=== PATIENT | female | born 1945 | race Caucasian/White ===

== ENCOUNTER 2017-11-29 12:37 | Emergency (ER) | payer SELFPAY ==
[~2017-11-29] VITALS: Ht 165.1 cm; Wt 65.0 kg
[2017-11-29 12:39] VITALS: BP 135/65; PULSE 75; RESP 24; TEMP 97.8; O2SAT 95
[2017-11-29 12:54] VITALS: O2SAT 95
--- NOTE | 2017-11-29 12:56 | PD ---
HPI Chief Complaint: Fall Time Seen by Provider: 12:51 Travel History International Travel<30 days: No Contact w/Intl Traveler<30days: No Traveled to known affect area: No History of Present Illness HPI Patient was found by family down on a tile floor it is unknown if the patient has syncopal type episode versus a mechanical trip and fall. Patient herself denies any actual complaints and would like to return home. Patient arrives by [facility] not on a shedpack but has a c-collar in place. 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 and for that reason she does not believe in doctors, and does not follow up with doctors. 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 no pcp no history? no written dnr/advanced directives in place. PFSH Past Medical History Medical History: Unable to Obtain Tetanus Vaccination: Unknown ?: Not Past Surgical History Surgical History: Unable to Obtain Social History Alcohol Use: No Tobacco Use: No Substance Use: No Allergies-Medications (Allergen,Severity, Reaction): Coded Allergies: No Known Allergies (Unverified , 11/29/17) Reported Meds & Prescriptions Reported Meds & Active Scripts Active Active Prescriptions or Reported Medications Unobtainable Review of Systems ROS Limitations: Clinical Condition Physical Exam Narrative GENERAL: SKIN: Warm and dry. PALE HEAD: TRAUMATIC SCALP LAC POSTERIORLY EYES: Pupils equal and round. No scleral icterus. No injection or drainage. ENT: No nasal bleeding or discharge. Mucous membranes pink and moist. OVER LEFT NASOLABIAL FOLD A ULCERATED MASS IS NOTED WHICH ACCORDING TO FAMILY IS CHRONIC AND UNDIAGNOSED NECK: Trachea midline. No JVD. CARDIOVASCULAR: Regular rate and rhythm. RESPIRATORY: No accessory muscle use. Clear to auscultation. Breath sounds equal bilaterally. GASTROINTESTINAL: Abdomen soft, non-tender, nondistended. Hepatic and splenic margins not palpable. MUSCULOSKELETAL: Extremities without clubbing, cyanosis, or edema. No obvious deformities. NEUROLOGICAL: Awake BUT CONFUSED... Normal speech. Data Data Last Documented VS Vital Signs Date Time Temp Pulse Resp B/P (MAP) Pulse Ox O2 Delivery O2 Flow Rate FiO2 11/29/17 12:54 Nasal Cannula 2.00 11/29/17 12:54 95 11/29/17 12:39 97.8 75 24 135/65 (88) Orders Orders Complete Blood Count With Diff (11/29/17 12:51) Comprehensive Metabolic Panel (11/29/17 12:51) Troponin I (11/29/17 12:51) B-Type Natriuretic Peptide (11/29/17 12:51) Prothrombin Time / Inr (Pt) (11/29/17 12:51) Act Partial Throm Time (Ptt) (11/29/17 12:51) Lipase (11/29/17 12:51) Chest, Single Ap (11/29/17 12:51) Iv Access Insert/Monitor (11/29/17 12:51) Ecg Monitoring (11/29/17 12:51) Oxygen Administration (11/29/17 12:51) Oximetry (11/29/17 12:51) Remove Backboard (11/29/17 12:51) Collar [place] (11/29/17 ) Labs Laboratory Tests Test 11/29/17 13:00 White Blood Count 10.4 TH/MM3 Red Blood Count 2.27 MIL/MM3 Hemoglobin 7.0 GM/DL Hematocrit 20.8 % Mean Corpuscular Volume 91.7 FL Mean Corpuscular Hemoglobin 30.7 PG Mean Corpuscular Hemoglobin Concent 33.5 % Red Cell Distribution Width 14.6 % Platelet Count 198 TH/MM3 Mean Platelet Volume 7.2 FL Neutrophils (%) (Auto) 86.4 % Lymphocytes (%) (Auto) 8.6 % Monocytes (%) (Auto) 4.7 % Eosinophils (%) (Auto) 0.1 % Basophils (%) (Auto) 0.2 % Neutrophils # (Auto) 9.0 TH/MM3 Lymphocytes # (Auto) 0.9 TH/MM3 Monocytes # (Auto) 0.5 TH/MM3 Eosinophils # (Auto) 0.0 TH/MM3 Basophils # (Auto) 0.0 TH/MM3 CBC Comment DIFF FINAL Differential Comment Prothrombin Time 13.6 SEC Prothromb Time International Ratio 1.3 RATIO Activated Partial Thromboplast Time 22.1 SEC Blood Urea Nitrogen 14 MG/DL Creatinine 1.00 MG/DL Random Glucose 123 MG/DL Total Protein 5.8 GM/DL Albumin 2.9 GM/DL Calcium Level 8.5 MG/DL Alkaline Phosphatase 66 U/L Aspartate Amino Transf (AST/SGOT) 28 U/L Alanine Aminotransferase (ALT/SGPT) 10 U/L Total Bilirubin 0.5 MG/DL Sodium Level 140 MEQ/L Potassium Level 3.6 MEQ/L Chloride Level 104 MEQ/L Carbon Dioxide Level 27.5 MEQ/L Anion Gap 9 MEQ/L Estimat Glomerular Filtration Rate 55 ML/MIN Troponin I 0.14 NG/ML B-Type Natriuretic Peptide 124 PG/ML Lipase 165 U/L MDM Medical Decision Making Medical Screen Exam Complete: Yes Emergency Medical Condition: Yes Medical Record Reviewed: Yes Differential Diagnosis Intracranial hemorrhage versus skull fracture versus anemia versus STEMI versus non-STEMI versus electrolyte abnormalities as cause of possible syncope Narrative Course Patient patient started to become bradycardic within 30 minutes after arrival patient was given medication however she continued to become bradycardic we initiated chest compressions intubated with 7-/2 ET tube and continue compressions and ACLS...... unfortunately throughout the entire ACLS and compressions patient never exhibited another symptom other than asystole or slow PEA bedside ultrasound did not show anY CARDIAC activity. Additionally went out to speak with family who all stated that the patient's oriental orthodox did not believe in going to see any physicians and so she does not have a primary care physician currently.... Patient did not have a DNR on file however the family does state that she would have never wanted to be kept alive on machine and also that she probably would not have wanted to have been intubated or the event had CPR initiated however none of this information was known until after these steps have been taken. Despite efforts patient continued to be in asystole and or PEA and did not respond to any of the doses of epinephrine or bicarbonate that was were given as well as ventilation via ET tube.... Patient pronounced at 1340 while the patient was in PEA however ultrasound did not show any cardiac contractions family made aware. family agreed that it was probably for the best that she didn't survive because they knew she would not have wanted to be "artificially" kept alive. I advised family that due to lack of documented DNR resuscitation efforts were initiated prior to family/poa/next of kin being available at the bedside for such a discussion. It is my belief that patient had multifactorial dysfunctions that had not been properly diagnosed due to the patient's desire to NOT see physicians for several years. Patient's blood work returned after she had been pronounced showing anemia of hemoglobin of 7 as well as non-STEMI with a troponin of 0.14 Critical Care Narrative CRITICAL CARE NOTE: With evaluation of the patient, labs, EKG, receipt of radiologic studies, administration of medications, reevaluation the patient and discussion of the patient with the admitting physicians, the total critical care time was [45] minutes. Time to perform other separately billable procedures was not included in the critical care time. Procedures Procedure Narrative EMERGENT: INTUBATION: The patient was put in optimal position for the procedure. Rapid sequence intubation was initiated by me using [NONE NEEDED] milligrams of etomidate IV and [NONE] milligrams of [NONE] IV. The patient was intubated with a [7.5] cuffed endotracheal tube. Tube placement was confirmed by visualization of the tube and balloon passing through the cords, capnometry Breath sounds were equal and well aerated bilaterally postintubation. No breath sounds over stomach. Patient tolerated procedure well. Diagnosis Primary Impression: S/P CARDIAC ARREST Additional Impression: S/P FALL V SYNCOPE Scripts Unable to Obtain Active Prescriptions or Reported Meds Disposition: 20 Pedro Smiley MD Nov 29, 2017 12:56
[2017-11-29 13:25] LABS: BASOPHIL % 0.2 % (0.0-2.0); EOSINOPHIL % 0.1 % (0.0-4.0); LYMPH % 8.6 % (9.0-44.0); LYMPHOCYTE # 0.9 TH/MM3 (1.0-4.8); MEAN CELL VOLUME 91.7 FL (80.0-100.0); MEAN CORPUSCULAR HEMOGLOBIN 30.7 PG (27.0-34.0); MEAN CORPUSCULAR HGB CONC 33.5 % (32.0-36.0); MEAN PLATELET VOLUME 7.2 FL (7.0-11.0); MONO % 4.7 % (0.0-8.0); MONOCYTE # 0.5 TH/MM3 (0-0.9); NEUT % 86.4 % (16.0-70.0); PLATELET COUNT 198 TH/MM3 (150-450); RED BLOOD COUNT 2.27 MIL/MM3 (4.00-5.30); RED CELL DISTRIBUTION WIDTH 14.6 % (11.6-17.2); WHITE BLOOD COUNT 10.4 TH/MM3 (4.0-11.0)
[2017-11-29 13:30] LABS: INTERNATIONAL NORMALIZED RATIO 1.3 RATIO; PROTHROMBIN TIME - PATIENT 13.6 SEC (9.8-11.6)
--- NOTE | 2017-11-29 13:39 | RADRPT ---
EXAM DATE/TIME: 11/29/2017 13:05 [facility] COMPARISON: No previous studies available for comparison. INDICATIONS : Syncopal episode- fall. MEDICAL HISTORY : None. SURGICAL HISTORY : None. ENCOUNTER: Initial ACUITY: 1 day PAIN SCORE: Non-responsive. LOCATION: Bilateral chest FINDINGS: There is opacification is identified in the left mid lung and base. Air bronchograms are identified. Minimal haziness is seen in the right base. Heart is moderately enlarged. CONCLUSION: 1. Dense consolidating airspace disease in the left lung base with suspected small effusion. 2. Mild air space disease right lung base. 3. Moderate cardiomegaly. Mo Gay MD on November 29, 2017 at 13:35 Board Certified Radiologist. This report was verified electronically.
[2017-11-29 13:41] LABS: HEMATOCRIT 20.8 % (35.0-46.0)
[2017-11-29 13:50] LABS: ALBUMIN 2.9 GM/DL (3.4-5.0); AST (GOT) 28 U/L (15-37); BICARBONATE 27.5 MEQ/L (21.0-32.0); BLOOD UREA NITROGEN 14 MG/DL (7-18); CALCIUM 8.5 MG/DL (8.5-10.1); CHLORIDE 104 MEQ/L (98-107); GLOMERULAR FILTRATION RATE 55 ML/MIN (>89); GLUCOSE,RANDOM 123 MG/DL (74-106); SODIUM (NA) 140 MEQ/L (136-145)
[2017-11-29 13:52] LABS: ALT (GPT) 10 U/L (10-53)
[2017-11-29 13:55] LABS: ALKALINE PHOSPHATASE 66 U/L (45-117); TOTAL BILIRUBIN ADULT 0.5 MG/DL (0.2-1.0); TOTAL PROTEIN 5.8 GM/DL (6.4-8.2); TROPONIN I 0.14 NG/ML (0.02-0.05)
== END 2017-11-29 15:05 | disposition expired ==
LOC: NEPC 12:37
DX: I46.9 Cardiac arrest, cause unspecified (principal); R55 Syncope and collapse; R22.0 Localized swelling, mass and lump, head; S01.01XA Laceration without foreign body of scalp, initial encounter; W19.XXXA Unspecified fall, initial encounter
CPT/HCPCS: 31500; 71045; 80053; 83690; 83880; 84484; 85025; 85610; 85730; 92950; 99291; L0150